=== PATIENT | male | born 1990 ===

== ENCOUNTER 2022-02-19 17:02 | Emergency (ER) | payer MEDICAID ==
[~2022-02-19] VITALS: Ht 170.2 cm; Wt 81.8 kg
[2022-02-19] MEDS ORDERED: normal saline 1000ML IV soln IVB ONE (17:15)
[2022-02-19 17:48] LABS: ALANINE AMINOTRANSFERASE 38 U/L (12-78); ALBUMIN/GLOBULIN RATIO 0.9 (1.1-1.5); ALKALINE PHOSPHATASE 83 IU/L (46-116); ANION GAP 21 (8-16); ASPARTATE AMINO TRANSFERASE 33 U/L (10-37); BASOPHILS % (AUTO) 0.4 % (0-1); BILIRUBIN,TOTAL 0.3 MG/DL (0.1-1.0); BLOOD UREA NITROGEN 12 MG/DL (7-18); BUN/CREATININE RATIO 9.5 (5.4-32.0); CALCIUM 8.3 MG/DL (8.5-10.1); CHLORIDE 108 MMOL/L (99-107); CREATININE 1.26 MG/DL (0.60-1.10); EOSINOPHILS # (AUTO) 0.2 X10'3 (0-0.9); EOSINOPHILS % (AUTO) 1.8 % (0-6); GLUCOSE 251 MG/DL (70-104); HEMATOCRIT 38.7 % (42.0-52.0); LYMPHOCYTES # (AUTO) 5.8 X10'3 (1.1-4.8); LYMPHOCYTES % (AUTO) 45.9 % (21-51); MEAN CORPUSCULAR HEMOGLOBIN 29.1 PG (27.0-31.0); MEAN CORPUSCULAR HGB CONC 31.1 g/dL (33.0-36.5); MEAN CORPUSCULAR VOLUME 93.7 FL (78-98); MEAN PLATELET VOLUME 9.9 FL (7.4-10.4); MONOCYTES # (AUTO) 1.1 X10'3 (0-0.9); MONOCYTES % (AUTO) 8.9 % (2-12); NEUTROPHILS # (AUTO) 5.5 X10'3 (1.8-7.7); PLATELET COUNT 154 X10'3 (140-440); POTASSIUM 3.7 MMOL/L (3.5-5.1); RED BLOOD COUNT 4.13 X10'6 (4.70-6.10); RED CELL DISTRIBUTION WIDTH 16.4 % (11.5-14.5); SODIUM 148 MMOL/L (135-145); TOTAL CARBON DIOXIDE 18.6 MMOL/L (24-32); TOTAL PROTEIN 6.2 G/DL (6.4-8.2); WHITE BLOOD COUNT 12.7 X10'3 (4.5-11.0); eGFR 66 ML/MIN
[2022-02-19 17:52] LABS: ETHANOL < 0.010 GM/DL (0.0-0.010)
[2022-02-19 18:21] LABS: ANISOCYTOSIS 1+; PLATELET ESTIMATE NORMAL; TOTAL CELLS COUNTED 100
[2022-02-19 18:22] LABS: BURR CELLS 2+; ELLIPTOCYTES FEW
--- NOTE | 2022-02-19 18:42 | NUR ---
MOTHER SAMANTHA SACRAMENTO [phone] STEP FATHER SLIM SACRAMENTO [phone] FATHER ELIZABET ARMENDARIZ [phone] GIRL FRIEND (WITNESS) MEGHANA WALL [phone]
[2022-02-23] MEDS ORDERED: epiNEPHrine 0.1mg/ml 10ml syringe ONE (08:00)
[2022-02-23] MEDS ORDERED: naloxone 0.4 mg/ml inj ONE (08:00)
== END 2022-02-19 20:27 ==
LOC: ER 17:03
DX: I46.9 Cardiac arrest, cause unspecified (principal); S09.90XA Unspecified injury of head, initial encounter; R55 Syncope and collapse; W19.XXXA Unspecified fall, initial encounter; Y93.89 Activity, other specified; Y92.89 Other specified places as the place of occurrence of the external cause; Y99.8 Other external cause status
CPT/HCPCS: 36415; 80053; 80320; 82948; 84484; 85007; 85025; 92950; 93005; 99285